=== PATIENT | male | born 2000 | race Two or more races ===

== ENCOUNTER 2022-11-30 19:59 | Emergency (ER) | payer OTHER ==
[~2022-11-30] VITALS: Ht 190.5 cm; Wt 104.5 kg
[2022-11-30 20:25] VITALS: BP 120/81; PULSE 101; RESP 18; TEMP 97.9
[2022-12-01 00:39] VITALS: O2SAT 97
== END 2022-12-01 01:40 | disposition home or self-care (01) ==
LOC: ER 19:59
DX: S61.012A Laceration without foreign body of left thumb without damage to nail, initial encounter (principal); G40.909 Epilepsy, unspecified, not intractable, without status epilepticus; W26.0XXA Contact with knife, initial encounter; Y93.89 Activity, other specified; Y92.89 Other specified places as the place of occurrence of the external cause; Y99.8 Other external cause status
CPT/HCPCS: 12001